=== PATIENT | female | born 1970 | race Caucasian/White ===

== ENCOUNTER 2021-04-16 05:54 | Day surgery (SDC) | payer BC ==
[2021-04-09 12:08] LABS: BASOPHILS # (AUTO) 0.1 X10'3 (0-0.2); BASOPHILS % (AUTO) 0.8 % (0-1); EOSINOPHILS # (AUTO) 0.1 X10'3 (0-0.9); EOSINOPHILS % (AUTO) 1.2 % (0-6); HEMATOCRIT 43.4 % (35.0-45.0); HEMOGLOBIN 14.7 g/dl (12.0-16.0); LYMPHOCYTES # (AUTO) 2.3 X10'3 (1.1-4.8); LYMPHOCYTES % (AUTO) 25.4 % (21-51); MEAN CORPUSCULAR HEMOGLOBIN 30.2 PG (27.0-31.0); MEAN CORPUSCULAR HGB CONC 33.8 g/dL (33.0-36.5); MEAN CORPUSCULAR VOLUME 89.2 FL (78-98); MEAN PLATELET VOLUME 9.7 FL (7.4-10.4); MONOCYTES # (AUTO) 0.7 X10'3 (0-0.9); MONOCYTES % (AUTO) 7.5 % (2-12); NEUTROPHILS # (AUTO) 5.8 X10'3 (1.8-7.7); NEUTROPHILS % (AUTO) 65.1 % (42-75); PLATELET COUNT 238 X10'3 (140-440); RED BLOOD COUNT 4.87 X10'6 (4.20-5.60); RED CELL DISTRIBUTION WIDTH 13.6 % (11.5-14.5); WHITE BLOOD COUNT 8.9 X10'3 (4.5-11.0)
[2021-04-09 12:10] LABS: ALANINE AMINOTRANSFERASE 20 U/L (12-78); ALBUMIN/GLOBULIN RATIO 1.1 (1.1-1.5); ALKALINE PHOSPHATASE 118 IU/L (46-116); ANION GAP 7 (8-16); ASPARTATE AMINO TRANSFERASE 11 U/L (10-37); BILIRUBIN,TOTAL 0.4 MG/DL (0.1-1.0); BLOOD UREA NITROGEN 14 MG/DL (7-18); BUN/CREATININE RATIO 15.7 (6.6-38.0); CALCIUM 9.6 MG/DL (8.5-10.1); CHLORIDE 102 MMOL/L (99-107); CREATININE 0.89 MG/DL (0.40-0.90); GLUCOSE 80 MG/DL (70-104); SODIUM 139 MMOL/L (135-145); TOTAL CARBON DIOXIDE 29.6 MMOL/L (24-32); TOTAL PROTEIN 7.7 G/DL (6.4-8.2); eGFR 67 ML/MIN
[~2021-04-16] VITALS: Ht 165.1 cm; Wt 127.0 kg
[~2021-04-16 05:54] MED LIST: ceFAZolin inj. 3,000 MG in normal saline 100ml IV soln 100 ML IV ONE; famotidine 20mg tablet PO ONE; ringers solution, lacted 1,000 ML IV SCH
[2021-04-16] MEDS ORDERED: LIDOcaine 0.5% (5mg/ml) 50ml vial ONE (07:11)
[2021-04-16] MEDS ORDERED: morphine 2 MG/ML inj. syringe IV PRN (07:15)
[2021-04-16] MEDS ORDERED: ringers solution, lacted 1,000 ML IV SCH (07:15)
[2021-04-16] MEDS ORDERED: fentaNYL/PF 50MCG/1 ML 2ML syringe IV PRN ×2 (07:15)
[2021-04-16] MEDS ORDERED: ondansetron/PF 4mg/2ml inj IV PRN (07:15)
[2021-04-16] MEDS ORDERED: morphine 4 MG/ML inj SYRINge IV PRN (07:15)
[2021-04-16] MEDS ORDERED: labetalol 20mg/4ml (5mg/ml) syringe IV PRN (07:15)
[2021-04-16] MEDS ORDERED: hydrALAZINE 20mg/ml inj. IV PRN (07:15)
[2021-04-16] MEDS ORDERED: BUPIVAcaine/PF 2.5mg/ml (0.25%) 10ml vial ONE (07:59)
[2021-04-16] MEDS ORDERED: MIDAZolam 1mg/ml 10ml vial ONE (08:01)
[2021-04-16] MEDS ORDERED: fentaNYL/PF 50MCG/1 ML 2ML syringe ONE (08:01)
[2021-04-16 08:17] VITALS: BP 114/65
[2021-04-16] MEDS ORDERED: ketorolac trometh. 30mg/ml inj. ONE (08:55)
[2021-04-16 09:50] VITALS: BP 119/70
--- NOTE | 2021-04-16 09:50 | NUR ---
ADMITTED TO PACU FROM OR ACCOMPANIED BY ANESTHESIA. INTIAL PHYSICAL ASSESSMENT DONE AND RECORDED. REPORT RECEIVED FROM ANESTHESIA.
[2021-04-16 10:00] VITALS: BP 121/72
[2021-04-16 10:10] VITALS: BP 120/71
[2021-04-16 10:20] VITALS: BP 118/67
[2021-04-16 10:30] VITALS: BP 119/60
--- NOTE | 2021-04-16 10:30 | NUR ---
DISCHARGE CRITERIA MET, DISCHARGE INSTRUCTIONS GIVEN, DEMONSTRATES VERBAL UNDERSTANDING. DISCHARGED HOME IN GOOD CONDITION.
== END 2021-04-16 10:30 | disposition home or self-care (01) ==
LOC: PAS 05:54
PROVIDERS: ATTEND Orthopaedic Surgery Hand Surgery
DX: G56.02 Carpal tunnel syndrome, left upper limb (principal); E66.01 Morbid (severe) obesity due to excess calories; Z68.42 Body mass index [BMI] 45.0-49.9, adult; Z20.822 Contact with and (suspected) exposure to COVID-19; Z79.899 Other long term (current) drug therapy; Z72.89 Other problems related to lifestyle; Z90.49 Acquired absence of other specified parts of digestive tract; Z98.51 Tubal ligation status
CPT/HCPCS: 29848; 36415; 80053; 82948; 85025; J0690; J2001; J2250; J3010; J3490; U0003; U0005; A4215; A7000; J1885; J7120

== ENCOUNTER 2021-05-25 08:19 | Day surgery (SDC) | payer BC ==
[2021-05-18 11:36] LABS: BASOPHILS # (AUTO) 0.1 X10'3 (0-0.2); BASOPHILS % (AUTO) 0.7 % (0-1); EOSINOPHILS # (AUTO) 0.1 X10'3 (0-0.9); EOSINOPHILS % (AUTO) 1.3 % (0-6); LYMPHOCYTES # (AUTO) 2.1 X10'3 (1.1-4.8); LYMPHOCYTES % (AUTO) 25.7 % (21-51); MEAN CORPUSCULAR HEMOGLOBIN 30.1 PG (27.0-31.0); MEAN CORPUSCULAR HGB CONC 33.5 g/dL (33.0-36.5); MEAN CORPUSCULAR VOLUME 89.9 FL (78-98); MEAN PLATELET VOLUME 8.8 FL (7.4-10.4); MONOCYTES # (AUTO) 0.7 X10'3 (0-0.9); MONOCYTES % (AUTO) 8.2 % (2-12); NEUTROPHILS # (AUTO) 5.4 X10'3 (1.8-7.7); NEUTROPHILS % (AUTO) 64.1 % (42-75); PRE OP HEMOGLOBIN 15.1 g/dL (12.0-16.0); PRE OP PLATELET COUNT 258 X10'3 (140-440); RED BLOOD COUNT 5.01 X10'6 (4.20-5.60); RED CELL DISTRIBUTION WIDTH 13.3 % (11.5-14.5)
[2021-05-18 11:48] LABS: ALBUMIN 3.9 G/DL (3.4-5.0); ALBUMIN/GLOBULIN RATIO 1.1 (1.1-1.5); ALKALINE PHOSPHATASE 114 IU/L (46-116); BLOOD UREA NITROGEN 9 MG/DL (7-18); BUN/CREATININE RATIO 11.7 (6.6-38.0); CALCIUM 9.7 MG/DL (8.5-10.1); CHLORIDE 104 MMOL/L (99-107); CREATININE 0.77 MG/DL (0.40-0.90); PRE OP ALT 23 U/L (30-65); PRE OP ANION GAP 11 (8-16); PRE OP AST 17 U/L (10-37); PRE OP BILIRUB, TOTAL 0.3 MG/DL (0.0-1.0); PRE OP GLUCOSE 86 MG/DL (70-104); PRE OP POTASSIUM 4.1 MMOL/L (3.4-5.1); PRE OP SODIUM 143 MMOL/L (135-145); TOTAL CARBON DIOXIDE 28.5 MMOL/L (24-32); TOTAL PROTEIN 7.6 G/DL (6.4-8.2); eGFR 80 ML/MIN
[~2021-05-25] VITALS: Ht 165.1 cm; Wt 126.9 kg
[2021-05-25] VITALS (7 sets, daily range): BP systolic 104–127; BP diastolic 62–87
[~2021-05-25 08:19] MED LIST changes: +BUPIVAcaine/PF 2.5mg/ml (0.25%) 10ml vial ONE; +NO HOME MEDS
[2021-05-25] MEDS ORDERED: ringers solution, lacted 1,000 ML IV SCH (09:25)
[2021-05-25] MEDS ORDERED: morphine 4 MG/ML inj SYRINge IV PRN (09:25)
[2021-05-25] MEDS ORDERED: proCHLORperazine 10 MG/2 ml inj IV PRN (09:25)
[2021-05-25] MEDS ORDERED: morphine 2 MG/ML inj. syringe IV PRN (09:25)
[2021-05-25] MEDS ORDERED: meperidine/PF 25mg/ml syringe IV PRN ×3 (09:25)
[2021-05-25] MEDS ORDERED: ondansetron/PF 4mg/2ml inj IV PRN (09:25)
[2021-05-25] MEDS ORDERED: sevoflurane 250ml liquid IH ONE (11:02)
[2021-05-25] MEDS ORDERED: fentaNYL/PF 50MCG/1 ML 2ML syringe ONE (11:05)
[2021-05-25] MEDS ORDERED: midazolam 1 mg/ML 2ml injection ONE (11:05)
[2021-05-25] MEDS ORDERED: propofol inj 20 ML IV ONE (11:06)
--- NOTE | 2021-05-25 11:42 | NUR ---
Received from OR via [facility] IN STABLE CONDITION , accompanied by Anesthesiologist and SPINNING LATHE OPERATOR AUTOMATIC report given by SPINNING LATHE OPERATOR AUTOMATIC AND Anesthesiolgist. Addendum: 05/25/21 at 1207 by Genesis Goddard RN Amended: Links added.
--- NOTE | 2021-05-25 12:42 | NUR ---
PATIENT DISCHARGED FROM PACU IN STABLE CONDITION AFTER DISCHARGE INSTRUCTIONS GIVEN. PATIENT GAVE VERBAL UNDERSTANDING OF INSTRUCTIONS GIVEN. PATIENT LEFT FACILITY VIA WHEELCHAIR WITH VOLUNTEER. Addendum: 05/25/21 at 1255 by Genesis Goddard RN Amended: Links added.
--- NOTE | 2021-05-25 16:34 | NUR ---
UNABLE TO INSERT IV EVEN WITH ULTRASOUND GUIDANCE. ONLY HAND SITES COULD BE LOOKED FOR. DOCTOR NOTIFIED OF UNSUCCESSFUL ATTEMPT. HERE TO TAKE TO SURGERY STATED HE WILL DO IT IN THE OR. AT BEDSIDE. Addendum: 05/25/21 at 1640 by Marci Hill RN Amended: Links added.
== END 2021-05-25 12:42 | disposition home or self-care (01) ==
LOC: PAS 08:19
PROVIDERS: ATTEND Orthopaedic Surgery Hand Surgery
DX: G56.01 Carpal tunnel syndrome, right upper limb (principal); Z90.49 Acquired absence of other specified parts of digestive tract; Z98.51 Tubal ligation status; Z79.899 Other long term (current) drug therapy; Z72.89 Other problems related to lifestyle
CPT/HCPCS: 29848; 36415; 80053; 82948; 85025; J0690; J2250; J2704; J3010; J3490; U0003; U0005; Z7506; Z7512; A4215; A4618; A7000; J7120